=== PATIENT | male | born 1950 | race Caucasian/White ===

== ENCOUNTER 2018-10-12 13:09 | Emergency (ER) | payer MEDICARE ==
[2018-10-12] MEDS ORDERED: CEFAZOLIN 1 GM VIAL ONE (13:52)
[2018-10-12] MEDS ORDERED: Sodium Chloride 0.9% 100 ML ONE (13:52)
[2018-10-12 14:23] LABS: Band 7 % (5-11); Lymphocytes 14 % (21-51); MDiff Complete? YES; Mean Corpuscular HGB CONC 31.5 g/dL (32.0-36.0); Mean Corpuscular Hemoglobin 29.8 pg (27.0-31.0); Mean Corpuscular Volume 94.7 fL (78.0-98.0); Mean Platelet Volume 7.4 fL (7.4-10.4); Monocytes 5 % (0-10); Neutrophil 70 % (42-75); PLT Morphology Comment Appears Adequate; Platelet Count 212 thou/uL (130-400); RBC Distribution Width 12.4 % (11.5-14.5); Reactive Lymphocytes 3 % (0-10); Red Blood Cell (RBC) Count 5.03 mill/uL (4.70-6.10); White Blood Cell (WBC) Count 12.7 thou/uL (4.8-10.8)
[2018-10-12 14:32] LABS: ALT (SGPT) 25 U/L (8-55); AST (SGOT) 26 U/L (5-34); Albumin 4.4 g/dL (3.4-4.8); Alkaline Phosphatase 92 U/L (40-150); Anion Gap 20 mmol/L (10-20); BUN (Urea Nitrogen) 13 mg/dL (8.4-25.7); Bilirubin, Total 1.9 mg/dL (0.2-1.2); Calc. Creatinine Clearance 0 mL/min (70-130); Calcium 9.6 mg/dL (7.8-10.44); Carbon Dioxide 24 mmol/L (23-31); Chloride 102 mmol/L (98-107); Estimated GFR-MDRD Greater than 90; Globulin 3.3 g/dL (2.4-3.5); Glucose 87 mg/dL (80-115); Potassium 4.6 mmol/L (3.5-5.1); Protein, Total 7.7 g/dL (5.8-8.1); Sodium 141 mmol/L (136-145)
== END 2018-10-12 15:06 | disposition home or self-care (01) ==
LOC: SCSER 13:09
DX: L03.115 Cellulitis of right lower limb (principal); I48.91 Unspecified atrial fibrillation; E78.5 Hyperlipidemia, unspecified; I10 Essential (primary) hypertension; Z87.891 Personal history of nicotine dependence
CPT/HCPCS: 80053; 85025; 96365; J0690; J7050

== ENCOUNTER 2018-10-20 13:53 | Outpatient (CLI) | payer MEDICARE ==
--- NOTE | 2018-10-20 16:21 | ULT ---
VENOUS DOPPLER ULTRASOUND OF THE RIGHT LOWER EXTREMITY: 10/20/18 HISTORY: Right lower extremity cellulitis, edema and erythema. TECHNIQUE: Rai scale with color flow and spectral doppler imaging of the deep venous system of the right lower extremity was performed. FINDINGS: There is good flow, compression and augmentation noted in the right common femoral, femoral, deep fem oral, popliteal, posterior tibial and greater saphenous veins. Incidental note is made of an avascular cystic mass in the right popliteal fossa measuring 5.6 x 1.2 x 4.3 cm consistent a Osorio's cyst. IMPRESSION: 1. No evidence of DVT in the right lower extremity. 2. Osorio's cyst. POS: OFF
== END 2018-10-20 13:54 | disposition home or self-care (01) ==
LOC: SCSULT 13:53
PROVIDERS: ATTEND Family Medicine
DX: L03.115 Cellulitis of right lower limb (principal); M71.21 Synovial cyst of popliteal space [Baker], right knee

== ENCOUNTER 2019-06-06 07:50 | Outpatient (CLI) | payer MEDICARE ==
--- NOTE | 2019-06-06 08:08 | RAD ---
Exam: Chest 2 views HISTORY:Preoperative assessment Comparison: 12/02/2007 FINDINGS: Lungs: No masses or consolidation. Cardiac silhouette:Prior sternotomy. Cardiac silhouette is at upper limits of normal Pulmonary vessels: Normal Pleural Spaces: Clear Pneumothorax: None Osseous abnormalities: None of acuity. IMPRESSION: No focal consolidation.
== END 2019-06-06 07:51 | disposition home or self-care (01) ==
LOC: SCSRAD 07:50
PROVIDERS: ATTEND Family Medicine
DX: Z01.818 Encounter for other preprocedural examination (principal)
CPT/HCPCS: 71046

== ENCOUNTER 2021-11-18 10:11 | Outpatient (CLI) | payer MEDICARE | END 2021-11-18 10:12 | disposition home or self-care (01) | LOC: SCSRAD 10:11 | PROVIDERS: ATTEND Nurse Practitioner Family | DX: M79.672 Pain in left foot (principal) ==